=== PATIENT | male | born 1995 | race Caucasian/White ===

== ENCOUNTER 2019-08-16 12:58 | Emergency (ER) | payer MEDICAID ==
[2019-08-16 13:27] LABS: Urine Appearance Clear; Urine Bilirubin Negative (Negative); Urine Blood Negative (Negative); Urine Color Straw; Urine Glucose Negative (Negative); Urine Ketones Negative (Negative); Urine Nitrite Negative (Negative); Urine Protein Negative (Negative); Urine Specific Gravity 1.001 (1.010-1.030); Urine Urobilinogen Negative (Negative)
[2019-08-16 13:35] LABS: ABS Lymphocytes 1.5 10^3/ul (1.0-4.8); ABS Monocytes 0.5 10^3/ul (0-0.8); ABS Neutrophils 5.3 10^3/ul (1.5-7.7); Eosinophil % 0.5 %; Hematocrit 43 % (42-52); Hemoglobin 14.9 g/dL (14.0-18.0); Lymphocyte % 20.2 %; Mean Corpuscular HGB Conc 35 g/dL (31-36); Mean Corpuscular Hemoglobin 32 pg (27-31); Mean Corpuscular Volume 90 fL (80-94); Mean Platelet Volume 7.5 fL (7.4-10.4); Platelet Count 228 10^3/uL (150-450); Red Cell Distribution Width 12 % (10-15); White Blood Count 7.4 10^3/uL (3.5-10.8)
[2019-08-16 13:54] LABS: ALT 52 U/L (7-52); AST 38 U/L (13-39); Albumin 4.7 g/dL (3.2-5.2); Albumin/Globulin Ratio 1.6 (1-3); Alkaline Phosphatase 95 U/L (34-104); Anion Gap 7 mmol/L (2-11); BUN/Creatinine Ratio 12.9 (8-20); Blood Urea Nitrogen 11 mg/dL (6-24); C Reactive Protein 19.61 mg/L (<8.01); CO2 Carbon Dioxide 28 mmol/L (22-32); Calcium 10.1 mg/dL (8.6-10.3); Chloride 99 mmol/L (101-111); EGFR African American 135.2 (>60); EGFR Non-African American 111.7 (>60); Globulin 2.9 g/dL (2-4); Glucose 92 mg/dL (70-100); Potassium 4.7 mmol/L (3.5-5.0); Sodium 134 mmol/L (135-145); Total Protein 7.6 g/dL (6.4-8.9)
--- NOTE | 2019-08-16 14:56 | ED ---
Abdominal Pain/Male - HPI Summary HPI Summary: The patient is a 24 y/o M presenting to [facility] with a chief complaint of diffuse abdominal pain with diarrhea for the last five days. The abdominal pain began on the left side, but has since been diffuse and described as a sharp pain rated 10/10 in severity at its worse. He continues to have pain following the bowel movements, which have been loose and yellow in color. Currently, he rates his pain 3/10 in severity. He additionally c/o decreased appetite and nausea without vomiting, and he hasnt had a fever. He notes that he currently takes Suboxone 8mg a day as part of a recovery program at [facility] for heroin abuse last used in March 2019. He provided a stool sample at [facility] with negative results. PMHx: pins in left foot. Current some day smoker, no EtOH, no current substance use. Medications reviewed. Allergies noted. - History of Current Complaint Chief Complaint: EDAbdPain Stated Complaint: SEVERE ABD PAIN/BLOOD IN STOOL PER PT Time Seen by Provider: 08/16/19 14:45 Hx Obtained From: Patient Onset/Duration: Sudden Onset, Lasting Days - five, Still Present Timing: Lasting Days Severity Initially: Severe Severity Currently: Mild Pain Intensity: 3 Pain Scale Used: 0-10 Numeric Location: Diffuse Radiates: No Character: Sharp Aggravating Factor(s): Nothing Alleviating Factor(s): Nothing Associated Signs And Symptoms: Positive: Decreased Appetite, Nausea, Diarrhea. Negative: Fever, Vomiting - Allergies/Home Medications Allergies/Adverse Reactions: Allergies Allergy/AdvReac Type Severity Reaction Status Date / Time No Known Allergies Allergy Verified 08/16/19 15:10 Home Medications: Home Medications Buprenorp/Nalox 8-2 MG FILM [Suboxone 8 mg-2 mg Sl Film] 1 film SL DAILY [History Confirmed 08/16/19] PMH/Surg Hx/FS Hx/Imm Hx Endocrine/Hematology History: Denies: Hx Diabetes Cardiovascular History: Denies: Hx Hypercholesterolemia, Hx Hypertension - Surgical History Surgical History: Yes Surgery Procedure, Year, and Place: pin in left foot Infectious Disease History: No Infectious Disease History: Denies: Traveled Outside the [place] in Last 30 Days - Family History Known Family History: Negative: Hypertension, Diabetes - Social History Alcohol Use: None Hx Substance Use: Yes Substance Use Type: Reports: Heroin Substance Use Comment - Amount & Last Used: last in March 2019 Hx Tobacco Use: Yes Smoking Status (MU): Current Some Day Smoker Review of Systems Negative: Fever Positive: Abdominal Pain - diffuse, sharp, Diarrhea - yellow, Nausea, Other - decreased appetite. Negative: Vomiting All Other Systems Reviewed And Are Negative: Yes Physical Exam - Summary Physical Exam Summary: VITAL SIGNS: Reviewed. GENERAL: Patient is a well-developed and nourished male who is lying comfortable in the stretcher. Patient is not in any acute respiratory distress. HEAD AND FACE: Normocephalic and atraumatic. EYES: PERRLA, EOMI x 2, No injected conjunctiva. EARS: Hearing grossly intact. Ear canals and tympanic membranes are WNL. MOUTH: Oropharynx within normal limits. NECK: Supple, trachea is midline, no adenopathy, no JVD. CHEST: Symmetric, no tenderness at palpation. LUNGS: Clear to auscultation bilaterally. No wheezing or crackles. CVS: RRR, S1 and S2 present, no murmurs or gallops appreciated. ABDOMEN: Soft, mild diffuse abdominal tenderness. No signs of distention. Positive bowel sounds. No rebound, no guarding, and no masses palpated. No abdominal bruit or pulsations. EXTREMITIES: FROM in all major joints, no edema, no cyanosis or clubbing. NEURO: Alert and oriented x 3. No acute neurological deficits. Speech is normal. SKIN: Dry and warm. Triage Information Reviewed: Yes Vital Signs On Initial Exam: Initial Vitals Temp Pulse Resp BP Pulse Ox 99.5 F 56 17 109/70 98 08/16/19 13:00 08/16/19 13:00 08/16/19 13:00 08/16/19 13:00 08/16/19 13:00 Vital Signs Reviewed: Yes Procedures - Sedation Patient Received Moderate/Deep Sedation with Procedure: No Diagnostics - Vital Signs Vital Signs Temp Pulse Resp BP Pulse Ox 08/16/19 13:00 99.5 F 56 17 109/70 98 - Laboratory Lab Results: Lab Results 08/16/19 08/16/19 08/16/19 Range/Units 13:15 13:25 13:25 WBC 7.4 (3.5-10.8) 10^3/uL RBC 4.70 (4.18-5.48) 10^6 /uL Hgb 14.9 (14.0-18.0) g/dL Hct 43 (42-52) % MCV 90 (80-94) fL MCH 32 H (27-31) pg MCHC 35 (31-36) g/dL RDW 12 (10-15) % Plt Count 228 (150-450) 10^3/uL MPV 7.5 (7.4-10.4) fL Neut % (Auto) 72.1 % Lymph % (Auto) 20.2 % [place] % (Auto) 6.7 % Eos % (Auto) 0.5 % Baso % (Auto) 0.5 % Absolute Neuts (auto) 5.3 (1.5-7.7) 10^3/ul Absolute Lymphs (auto) 1.5 (1.0-4.8) 10^3/ul Absolute Monos (auto) 0.5 (0-0.8) 10^3/ul Absolute Eos (auto) 0.0 (0-0.6) 10^3/ul Absolute Basos (auto) 0.0 (0-0.2) 10^3/ul Absolute Nucleated RBC 0.0 10^3/ul Nucleated RBC % 0.0 Sodium 134 L (135-145) mmol/L Potassium 4.7 (3.5-5.0) mmol/L Chloride 99 L (101-111) mmol/L Carbon Dioxide 28 (22-32) mmol/L Anion Gap 7 (2-11) mmol/L BUN 11 (6-24) mg/dL Creatinine 0.85 (0.67-1.17) mg/dL Est GFR ( Amer) 135.2 (>60) Est GFR (Non-Af Amer) 111.7 (>60) BUN/Creatinine Ratio 12.9 (8-20) Glucose 92 (70-100) mg/dL Lactic Acid (0.5-2.0) mmol/L Calcium 10.1 (8.6-10.3) mg/dL Total Bilirubin 1.20 H (0.2-1.0) mg/dL AST 38 (13-39) U/L ALT 52 (7-52) U/L Alkaline Phosphatase 95 (34-104) U/L C-Reactive Protein 19.61 H (<8.01) mg/L Total Protein 7.6 (6.4-8.9) g/dL Albumin 4.7 (3.2-5.2) g/dL Globulin 2.9 (2-4) g/dL Albumin/Globulin Ratio 1.6 (1-3) Lipase < 10 L (11.0-82.0) U/L Urine Color Straw Urine Appearance Clear Urine pH 7.0 (5-9) Ur Specific [place] 1.001 L (1.010-1.030) Urine Protein Negative (Negative) Urine Ketones Negative (Negative) Urine Blood Negative (Negative) Urine Nitrate Negative (Negative) Urine Bilirubin Negative (Negative) Urine Urobilinogen Negative (Negative) Ur Leukocyte Esterase Negative (Negative) Urine Glucose Negative (Negative) 08/16/19 Range/Units 13:25 WBC (3.5-10.8) 10^3/uL RBC (4.18-5.48) 10^6 /uL Hgb (14.0-18.0) g/dL Hct (42-52) % MCV (80-94) fL MCH (27-31) pg MCHC (31-36) g/dL RDW (10-15) % Plt Count (150-450) 10^3/uL MPV (7.4-10.4) fL Neut % (Auto) % Lymph % (Auto) % [place] % (Auto) % Eos % (Auto) % Baso % (Auto) % Absolute Neuts (auto) (1.5-7.7) 10^3/ul Absolute Lymphs (auto) (1.0-4.8) 10^3/ul Absolute Monos (auto) (0-0.8) 10^3/ul Absolute Eos (auto) (0-0.6) 10^3/ul Absolute Basos (auto) (0-0.2) 10^3/ul Absolute Nucleated RBC 10^3/ul Nucleated RBC % Sodium (135-145) mmol/L Potassium (3.5-5.0) mmol/L Chloride (101-111) mmol/L Carbon Dioxide (22-32) mmol/L Anion Gap (2-11) mmol/L BUN (6-24) mg/dL Creatinine (0.67-1.17) mg/dL Est GFR ( Amer) (>60) Est GFR (Non-Af Amer) (>60) BUN/Creatinine Ratio (8-20) Glucose (70-100) mg/dL Lactic Acid 0.9 (0.5-2.0) mmol/L Calcium (8.6-10.3) mg/dL Total Bilirubin (0.2-1.0) mg/dL AST (13-39) U/L ALT (7-52) U/L Alkaline Phosphatase (34-104) U/L C-Reactive Protein (<8.01) mg/L Total Protein (6.4-8.9) g/dL Albumin (3.2-5.2) g/dL Globulin (2-4) g/dL Albumin/Globulin Ratio (1-3) Lipase (11.0-82.0) U/L Urine Color Urine Appearance Urine pH (5-9) Ur Specific [place] (1.010-1.030) Urine Protein (Negative) Urine Ketones (Negative) Urine Blood (Negative) Urine Nitrate (Negative) Urine Bilirubin (Negative) Urine Urobilinogen (Negative) Ur Leukocyte Esterase (Negative) Urine Glucose (Negative) Result Diagrams: 08/16/19 13:25 08/16/19 13:25 Lab Statement: Any lab studies that have been ordered have been reviewed, and results considered in the medical decision making process. - CT Abdominopelvic CT CT Interpretation Completed By: Radiologist Summary of CT Findings: Impression: No abdominal pelvic pathologic process evident. ED physician has reviewed this report. Re-Evaluation - Re-Evaluation First Eval Re-Evaluation Time: 16:50 Change: Improved Comment: Patient's pain has resolved. He is not experiencing any nausea or diarrhea. He is tolerating PO. We discussed plan for discharge. Abdominal Pain Male Course/Dx - Course Assessment/Plan: Patient is a 24 y/o M with a chief complaint of diffuse abdominal pain, yellow diarrhea, and decreased appetite over the last five days with nausea but without any vomiting or fever. Blood work without a significant abnormality except for sodium of 134, chloride of 99, total bili of 1.2, and CRP of 19.6. Urinalysis is negative for UTI. Abdominopelvic CT impression: No acute intra-abdominal pathology. Patient had a stool culture which is still pending but is negative for Shiga toxin, cryptosporidium, and Giardia. The patient was given IV fluids for rehydration. At this time, the patient is feeling better. He had no episodes of diarrhea, and he is able to tolerate by mouth without any nausea or vomiting. Patient is hemodynamically stable. I discussed all the findings and test results with the patient. Patient was instructed to return to the emergency room immediately if any of the symptoms return or worsen. Plan of care was discussed with the patient and understands and agrees. All questions were answered at patient satisfaction. There were no further complaints or concerns. Lung exam before discharge: CTA B/L. Good air exchange. No wheezing or crackles heard. CVS: S1 and S2 present. No murmurs appreciated. Patient is alert and oriented x 3. Patient is hemodynamically stable. Patient will be discharged home with follow up PCP in the next 2-3 days. - Diagnoses Provider Diagnoses: Intermittent abdominal pain, Diarrhea Discharge ED - Sign-Out/Discharge Documenting (check all that apply): Patient Departure - Patient will be discharged home. - Discharge Plan Condition: Improved Disposition: HOME Patient Education Materials: Acute Diarrhea (ED), Acute Abdominal Pain (DC) Referrals: Donna Villarreal PA [Primary Care Provider] - 3 Days Additional Instructions: Follow up with your primary care provider in 2-3 days. Return to the emergency department for any new or worsening symptoms. - Billing Disposition and Condition Condition: IMPROVED Disposition: Home - Attestation Statements Document Initiated by Cierra: Yes Documenting Scribe: Jodie Sung Provider For Whom Cierra is Documenting (Include Credential): Dr. Jersey Molina MD Scribe Attestation: Jodie Cortes scribed for Dr. Jersey Molina MD on 08/16/19 at 1859. Scribe Documentation Reviewed: Yes Provider Attestation: The documentation as recorded by the Jodie padilla accurately reflects the service I personally performed and the decisions made by me, Dr. Jersey Molina MD Status of Scribvincent Document: Viewed
[2019-08-16] MEDS ORDERED: Iohexol 350* (CONTRAST) 500 ML MDV IV ONE (15:33)
[2019-08-16 17:23] VITALS: BP 89/76
== END 2019-08-16 17:23 | disposition home or self-care (01) ==
LOC: ED 12:58
DX: R10.9 Unspecified abdominal pain (principal); R19.7 Diarrhea, unspecified; F17.200 Nicotine dependence, unspecified, uncomplicated; Z79.899 Other long term (current) drug therapy
CPT/HCPCS: 36415; 74177; 80053; 81003; 83605; 83690; 85025; 86140; 99283; Q9967